=== PATIENT | male | born 1985 | race Caucasian/White ===

== ENCOUNTER 2023-01-28 21:15 | Emergency (ER) | payer BC, SELFPAY ==
[2023-01-28 21:37] VITALS: BP 155/95; PULSE 84; RESP 18; TEMP 36.6; O2SAT 99; BMI 47.3
--- NOTE | 2023-01-28 22:22 | ED_ITS ---
HPI - Ear Problem General Time Seen by Provider: 22:22 Date Seen: 01/28/23 Chief complaint: Ear/Nose/Throat Problem Stated complaint: Left ear infection-bleeding &pain Time Seen by Provider: 01/28/23 22:22 Source: patient and RN notes reviewed Mode of arrival: ambulatory Limitations: no limitations History of Present Illness HPI Narrative: This 37-year-old male is coming in with left ear pain. He woke up with left ear pain this morning, has a history of ear infections. Put a Q-tip in the ear and came out with what he thought was pus on the Q-tip. He is not feeling drainage at this time. He has had no fevers. He has had no associated cough or cold symptoms. The ear has been ringing today. It is still painful at this time. MD Complaint: ear pain, ear discharge and decreased hearing Location: left ear Related Data Allergies Allergy/AdvReac Type Severity Reaction Status Date / Time No Known Drug Allergies Allergy Verified 01/28/23 21:40 Review of Systems Narrative: As per HPI. PFSH PFS Medical History No significant past medical history Surgical History No significant past surgical history Exam Const: Vital Signs, click to edit/add: Vital Signs - 24 hr 01/28/23 21:37 Temperature 97.9 F Pulse Rate [Right Pulse Oximeter] 84 Respiratory Rate 18 Blood Pressure [Ri ght Upper Arm] 155/95 H Pulse Oximetry 99 Oxygen Delivery Me thod Room Air this is a very pleasant 37-year-old gentleman that is alert, interactive, no apparent distress. He is seen in exam room 4. Face is atraumatic, speech is normal, oropharynx without any acute changes, no posterior pharyngeal changes. Right TM canal are normal. Left canal appears normal, no drainage at this time. The tympanic membrane is erythematous, is bulging with what appears to be some mucoid /purulent material, again no visible drainage at this time. There is loss of light reflex on this side. Neck is supple, no cervical adenopathy. CV regular rate and rhythm no murmur. Documenting provider has reviewed patient's vital signs: yes Course Course ED Course: Reviewed with Gideon that he is ear does not appear to have drainage at this moment, if he does start to notice further drainage then he should use the ear drops thatI prescribed. Otherwise we will disuse oral antibiotics. He does not need to use the ear drops if there is no further drainage. This ear certainly could perforate again and drain further, would have him use the eyedrops as stated. Have written for Ciprodex 4 drops b.i.d. x7 days, 5 mL to be used if needed. Vital Signs Vital signs: Initial Vital Signs Temperature 97.9 F 01/28/23 21:37 Temperature Source Temporal Artery Scan 01/28/23 21:37 Pulse Rate 84 01/28/23 21:37 Pulse Rhythm Regular 01/28/23 21:37 Pulse Strength 3+ Normal 01/28/23 21:37 Respiratory Rate 18 01/28/23 21:37 Blood Pressure 155/95 H 01/28/23 21:37 Blood Pressure Mean 115 H 01/28/23 21:37 Blood Pressure Position Sitting 01/28/23 21:37 Pulse Oximetry 99 01/28/23 21:37 Oxygen Delivery Method Room Air 01/28/23 21:37 Vital Signs Temperature 97.9 F 01/28/23 21:37 Pulse Rate 84 01/28/23 21:37 Respiratory Rate 18 01/28/23 21:37 Blood Pressure 155/95 H 01/28/23 21:37 Pulse Oximetry 99 01/28/23 21:37 Oxygen Delivery Method Room Air 01/28/23 21:37 Temperature 97.9 F 01/28/23 21:37 Pulse Rate 84 01/28/23 21:37 Respiratory Rate 18 01/28/23 21:37 Blood Pressure 155/95 H 01/28/23 21:37 Pulse Oximetry 99 01/28/23 21:37 Oxygen Delivery Method Room Air 01/28/23 21:37 Discharge Plan Discharge Clinical Impression: Otitis media Patient Disposition: Home, Self-Care Condition: Stable Instructions: Ear Infection (ED) Additional Instructions: Start Augmentin, prescription given from [facility]. If your ear does start draining again, recommend filling and using the Ciprodex drops. Tylenol/ibuprofen per bottle directions as needed for pain control. If you are not improving over the next week, worsening or have concerns at any point, need to seek re-evaluation. Activity Level: Activity as Tolerated Follow Up/Referrals: Corey Dominguez MD [Primary Care Provider] - Stand Alone Forms: [employer] Info Instructions
[2023-01-28 22:28] VITALS: BP 138/74; PULSE 80; RESP 18; TEMP 36.8; O2SAT 99
== END 2023-01-28 22:43 | disposition home or self-care (01) ==
LOC: ED 22:41
PROVIDERS: Emergency Provider Family Medicine; PCP Family Medicine
DX: H66.92 Otitis media, unspecified, left ear (principal)
CPT/HCPCS: 99282; 99283